=== PATIENT | female | born 1965 ===

== ENCOUNTER → 2023-12-08 08:24 | Outpatient (REF) | payer OTHER, SELFPAY ==
[2023-12-11 14:42] LABS: % Basophils 1.2 % (0-2); % Eosinophils 2.4 % (0-6); % Immature Granulocytes 0.3 % (0-0.5); % Lymphocytes 47.5 % (20.5-51.1); % Monocytes 6.9 % (1.7-9.3); % Neutrophils 41.7 % (42.2-75.2); Absolute Basophils 0.1 10^3/uL (0-0.2); Absolute Eosinophils 0.2 10^3/uL (0-0.7); Absolute Lymphocytes 3.4 10^3/uL (1.2-3.4); Absolute Monocytes 0.5 10^3/uL (0.1-0.6); Hematocrit 44.6 % (37.0-47.0); Hemoglobin 14.3 g/dL (12.0-16.0); Mean Corp Hgb Conc. 32.1 g/dL (33.0-37.0); Mean Corpuscular Hgb 30.7 pg (27.0-31.0); Mean Corpuscular Volume 95.7 fL (81.0-99.0); Nucleated Red Blood Cells % 0 %; Platelet Count 349 10^3/uL (130-400); Red Blood Cell Count 4.66 10^6/uL (4.20-5.40); Red Cell Dist. Width 12.8 % (11.5-14.5); White Blood Cell Count 7.2 10^3/uL (4.8-10.8)
[2023-12-11 15:41] LABS: TSH 3.99 uIU/ml (0.47-4.68); Vitamin D, 25-OH*** 23.6 ng/mL (30-80)
[2023-12-11 15:48] LABS: Alkaline Phosphatase 95 U/L (38-126); Blood Urea Nitrogen 13 mg/dl (7-17); Calcium 9.8 mg/dl (8.4-10.2); Carbon Dioxide 25 mmol/L (22-30); Chloride 105 mmol/L (98-107); Glucose 94 mg/dl (70-99); Potassium 4.4 mmol/L (3.5-5.1); Sodium 138 mmol/L (135-145); eGFR > 60.00
[2023-12-11 15:49] LABS: ALT (SGPT) 21 U/L (0-35); AST (SGOT) 28 U/L (14-36); Albumin 4.5 g/dl (3.5-5.0); Total Bilirubin 1.3 mg/dl (0.2-1.3); Total Protein 7.9 g/dl (6.3-8.2); Triglyceride 281 mg/dl (10-149); Very Low Density Lipoprotein 56 mg/dl (0-30)
[2023-12-11 15:50] LABS: HDL Cholesterol 50 mg/dl; LDL Cholesterol, Calculated 178 mg/dl; Total Cholesterol 284 mg/dl (50-199)
== END ==
LOC: CLAB 08:24
PROVIDERS: ATTENDING PHYSICIAN Family Medicine
DX: E78.00 Pure hypercholesterolemia, unspecified (principal); Z00.00 Encounter for general adult medical examination without abnormal findings; I10 Essential (primary) hypertension; Z12.39 Encounter for other screening for malignant neoplasm of breast
CPT/HCPCS: 36415; 80053; 80061; 82306; 84443; 85025

== ENCOUNTER → 2024-02-22 08:18 | Outpatient (REF) | payer OTHER, SELFPAY | LOC: WDC 08:18 | PROVIDERS: ATTENDING PHYSICIAN Family Medicine | DX: Z12.31 Encounter for screening mammogram for malignant neoplasm of breast (principal) | CPT/HCPCS: 77063; 77067 ==

== ENCOUNTER → 2024-02-28 09:00 | Outpatient (REF) | payer OTHER, SELFPAY | LOC: WDC 09:00 | PROVIDERS: ATTENDING PHYSICIAN Family Medicine | DX: R92.8 Other abnormal and inconclusive findings on diagnostic imaging of breast (principal) | CPT/HCPCS: 76642 ==

== ENCOUNTER 2024-06-04 10:44 | Emergency (ER) | payer OTHER, SELFPAY ==
[2024-06-04 10:45] VITALS: BP 180/108
[2024-06-04 11:22] VITALS: BP 174/85
[2024-06-04] MEDS: ZESTRIL 10 MG PO (11:45)
--- NOTE | 2024-06-04 11:51 | ED.GENMED ---
History of Present Illness
General
Chief Complaint: Blood Pressure Problem
Source: patient
Exam Limitations: none
Time Seen by Provider: 06/04/24 11:09
Nursing documentation reviewed up to this point in time: agreed with
History of Present Illness
History of Present Illness:
58-year-old female past medical history of anxiety disorder and hypertension presenting to the emergency department today with concerns of elevated blood pressure today in the 150s and 60s which prompted her come to the ER. Denies any current chest
pain shortness of breath numbness weakness or additional symptoms otherwise. She does feel somewhat anxious but does have a history of anxiety disorder and panic disorder. Has been taking metoprolol for a long time with no recent changes in dosing.
Review of Systems
Review of Systems
Allergies reviewed?: Yes
All Other Systems: ROS reviewed and negative except as documented in HPI and ROS
Phy Exam
Physical Exam
Physical Exam:
GENERAL: Alert , in no apparent distress
EYE: pupils equal and reactive
NECK: Supple, no significant adenopathy.
ENT: o/p clr, mmm.
CARDIAC: Regular rate and rhythm .
LUNGS: Clear breath sounds bilaterally, no acute respiratory distress, no wheezes/rales/rhonchi
ABDOMEN: Soft, without focal tenderness, no r/g, no cvat
NEUROLOGICAL: Alert and oriented, no focal neuro deficits
SKIN: Warm and dry, skin intact.
MUSCULOSKELETAL: No edema, well perfused.
PSYCH: Normal and appropriate interaction.
Course
Orders/Labs/Results
Orders:
Orders
06/04/24 10:51
Electrocardiogram (*1) Urgent
Reason for Study: Hypertension, Benign
EKG- Treatment ONCE
06/04/24 11:37
Lisinopril [Zestril] 10 mg PO NOW STA
Vital Signs
Initial and Last Documented VS:
Initial Vital Signs
Temp Pulse Resp BP Pulse Ox
99.6 F 85 16 180/108 98
06/04/24 10:45 06/04/24 10:45 06/04/24 10:45 06/04/24 10:45 06/04/24 10:45
Last Documented Vital Signs
Temp Pulse Resp BP Pulse Ox
99.6 F 74 17 174/85 98
06/04/24 10:45 06/04/24 11:20 06/04/24 11:20 06/04/24 11:22 06/04/24 11:21
MDM/Problems Addressed
MDM/Problems Addressed:
58-year-old female presenting to the emergency department today with concerns of elevated blood pressure. Here she is otherwise asymptomatic. Blood pressure initially in the 180s but then improving to the 170s over 80s remainder of her vital signs
are normal she is in no distress normal heart lung examination no signs of stroke no signs of endorgan damage or hypertensive emergencies. Her primary care doctor was contacted and we will start lisinopril 10 mg daily and otherwise will follow-up.
Return precautions given.
*Critical Care Note
Total Time (30-74mins, 75-104mins- exclusive of procedures): Not Applicable
ED Attending Note
-
Portions of this chart may have been created with voice recognition software.� Occasional wrong word or��sound alike� substitutions may have occurred due to the inherent limitations of voice recognition software.
Discharge Plan
Departure
Patient Disposition: Home (Routine Discharge)
Date of Disposition: 06/04/24
Time of Disposition: 11:53
Patient with high blood pressure during this ER visit?: Yes
Condition: Good
Covid-19: Not Applicable
Discharge Problem:
High blood pressure
Instructions: BLOOD PRESSURE
Prescriptions:
New
lisinopril 10 mg tablet
10 mg PO DAILY Qty: 14 0RF
Referrals:
Suman Bell DO [Family Provider] -
Activity Restrictions/Additional Instructions:
You came to the emergency department today with concerns of high blood pressure. You were started on lisinopril and you can follow-up with the primary care doctor. Return to the emergency department for any worsening, new or concerning symptoms.
Interventions
Interventions:
*Risk Screen - Suicide Last Done: 06/04/24 10:45
*General Assessment Last Done: 06/04/24 10:45
*Neglect/Abuse Screening Last Done: 06/04/24 10:45
ED- Fall Risk Assessment Last Done: 06/04/24 11:21
*ED COVID-19 Vaccine History Last Done: 06/04/24 10:45
ED- Cardiac Assessment Last Done: 06/04/24 11:21
ED- Neurological Assessment Last Done: 06/04/24 11:21
ED- Pulmonary Assessment Last Done: 06/04/24 11:21
Discharge Date and Time
Print Language: ARMENIAN
== END 2024-06-04 12:03 | disposition home or self-care (01) ==
LOC: EMR 10:44
PROVIDERS: EMERGENCY PHYSICIAN Emergency Medicine; FAMILY PHYSICIAN Family Medicine
DX: I10 Essential (primary) hypertension (principal); F41.9 Anxiety disorder, unspecified; Z79.899 Other long term (current) drug therapy
CPT/HCPCS: 99283; 93005

== ENCOUNTER → 2025-02-26 07:40 | Outpatient (REF) | payer OTHER, SELFPAY | LOC: WDC 07:40 | PROVIDERS: ATTENDING PHYSICIAN Family Medicine | DX: Z12.31 Encounter for screening mammogram for malignant neoplasm of breast (principal) | CPT/HCPCS: 77063; 77067 ==